=== PATIENT | female | born 1965 | race Caucasian/White ===

== ENCOUNTER 2017-08-24 18:19 | Emergency (ER) | payer MEDICAID ==
[~2017-08-24] VITALS: Ht 162.6 cm; Wt 59.0 kg
[2017-08-24] MEDS ORDERED: FAMOTIDINE 20MG/2ML VIAL IV STA (18:47)
[2017-08-24] MEDS ORDERED: ONDANSETRON HCL 4MG/2ML VIAL IV STA (18:47)
[2017-08-24] MEDS ORDERED: KETOROLAC 30MG/ML VIAL IV STA (18:47)
[2017-08-24] MEDS ORDERED: MORPHINE SULFATE 4 MG/ML CPJ (NOT FOR IM USE) IV STA (18:47)
[2017-08-24] MEDS ORDERED: SODIUM CHLORIDE 0.9% 1,000 ML IV ONE (18:47)
[2017-08-24 19:17] LABS: BASOPHILS % 0.5 % (0.0-2.0); HEMATOCRIT. 43.2 % (36.0-48.0); LYMPHOCYTES % 36.4 % (20.0-50.0); MEAN CORPUSCULAR HEMOGLOBIN 40.8 pg (28.0-32.0); MEAN CORPUSCULAR VOLUME 117.5 fL (81.0-99.0); MEAN PLATELET VOLUME 7.7 fl (7.4-10.4); NEUTROPHILS % 51.1 % (40.0-76.0); PLATELET 258 x1000/uL (130-400); RED BLOOD CELL COUNT 3.68 mill/uL (4.2-5.4); RED CELL DISTRIBUTION WIDTH 16.4 % (11.6-14.6)
[2017-08-24 19:22] LABS: CHLORIDE 105 mEq/L (98-107)
[2017-08-24 19:24] LABS: PROTHROMBIN TIME 10.1 sec (9.4-11.6)
[2017-08-24 19:30] LABS: CLARITY URINE CLEAR (CLEAR); COLOR URINE YELLOW (YELLOW); KETONES URINE NEGATIVE (NEGATIVE); LEUKOCYTE ESTERASE URINE NEGATIVE (NEGATIVE); NITRITE URINE NEGATIVE (NEGATIVE); OCCULT BLOOD URINE TRACE (NEGATIVE); PROTEIN URINE NEGATIVE (NEGATIVE); SPECIFIC GRAVITY URINE 1.008 (1.005-1.030); UROBILINOGEN URINE 0.2 E.U./dL (0.2-1.0)
[2017-08-24 19:31] LABS: PLATELET ESTIMATE NORMAL
[2017-08-24] MEDS ORDERED: MORPHINE SULFATE 4 MG/ML CPJ (NOT FOR IM USE) IV ONE (20:00)
[2017-08-24] MEDS ORDERED: FOLIC ACID 1 MG, THIAMINE HCL 100 MG, MVI, ADULT NO.1 10 ML in DEXTROSE 5% WATER 1,000 ML IV ONE ×4 (21:00)
[2017-08-24 22:02] VITALS: BP 113/91
[2017-08-25 10:04] LABS: *AMPHETAMINES SCREEN URINE NEGATIVE (NEGATIVE); *BARBITURATES SCREEN URINE NEGATIVE (NEGATIVE); *BENZODIAZEPINES SCREEN URINE PRESUMTIVE POSITIVE (NEGATIVE); *COCAINE SCREEN URINE NEGATIVE (NEGATIVE)
[2017-08-25 10:05] LABS: CANNABINOID URINE SCREEN PRESUMTIVE POSITIVE (NEGATIVE); METHADONE URINE SCREEN NEGATIVE (NEGATIVE); OPIATES URINE SCREEN NEGATIVE (NEGATIVE); PHENCYCLIDINE URINE SCREEN NEGATIVE (NEGATIVE)
== END 2017-08-24 23:20 | disposition home or self-care (01) ==
LOC: ER 18:19 → ENRESERV 23:29 → CANRESERV 23:29 → CANBEDREQ 23:48
DX: K29.20 Alcoholic gastritis without bleeding (principal); E86.0 Dehydration; F41.9 Anxiety disorder, unspecified; F17.290 Nicotine dependence, other tobacco product, uncomplicated; Z90.710 Acquired absence of both cervix and uterus
CPT/HCPCS: 36415; 71045; 74176; 80053; 80305; 81003; 83605; 83690; 84484; 85025; 85610; 93005; 96361; 96365; 96366; 96375; 96376; 99285; 99406; G0482; J1885; J2270; J2405; J3411; J3490; J7030; J7070

== ENCOUNTER 2021-09-04 01:43 | Inpatient (IN) | payer MEDICAID, MEDICARE ==
[~2021-09-04] VITALS: Ht 154.9 cm; Wt 51.7 kg
[2021-09-04] VITALS (55 sets, daily range): BP systolic 37–169; BP diastolic 20–156
[2021-09-04] MEDS ORDERED: DEXTROSE 50% WATER 50ML SYRINGE IV ONE (02:00)
[2021-09-04] MEDS ORDERED: VANCOMYCIN 1G PREMIX 200 ML IV ONE (02:00)
[2021-09-04] MEDS ORDERED: CEFTRIAXONE 1 G PREMIX 50 ML IV ONE (02:00)
[2021-09-04] MEDS ORDERED: SODIUM CHLORIDE 0.9% 1000ML BAG (SEPSIS BOLUS) IV ONE ×2 (02:00→03:15)
[2021-09-04] MEDS ORDERED: NOREPINEPHRINE 8MG/250ML PMX 250 ML IV ONE (02:15)
[2021-09-04 03:07] LABS: HCG SCREEN NEGATIVE
[2021-09-04] MEDS ORDERED: PIPERACILLIN/TAZ 3.375G PREMIX 50 ML IV ONE (03:15)
[2021-09-04 03:22] LABS: HEMATOCRIT. 33.3 % (36.0-48.0); HEMOGLOBIN. 10.6 g/dL (12.0-16.0); MEAN CORPUSCULAR HEMOGLOBIN 36.5 pg (28.0-32.0); MEAN CORPUSCULAR VOLUME 114.1 fL (81.0-99.0); MEAN PLATELET VOLUME 9.4 fl (7.4-10.4); PLATELET 104 x1000/uL (130-400); RED BLOOD CELL COUNT 2.92 mill/uL (4.2-5.4); RED CELL DISTRIBUTION WIDTH 16.1 % (11.6-14.6)
[2021-09-04 03:29] LABS: CLARITY URINE TURBID (CLEAR); COLOR URINE DARK YELLOW (YELLOW); KETONES URINE TRACE (NEGATIVE); LEUKOCYTE ESTERASE URINE 1+ (NEGATIVE); NITRITE URINE NEGATIVE (NEGATIVE); OCCULT BLOOD URINE 2+ (NEGATIVE); PROTEIN URINE 3+ (NEGATIVE); SPECIFIC GRAVITY URINE 1.021 (1.005-1.030)
[2021-09-04 03:38] LABS: CHLORIDE 97 mEq/L (98-107)
[2021-09-04 03:47] LABS: CREATINE KINASE 332 IU/L (26-192); ETHANOL BLOOD < 10 mg/dL; T4 FREE 1.99 ng/dL (0.76-1.46)
[2021-09-04 03:55] LABS: PLATELET ESTIMATE DECREASED
[2021-09-04 03:58] LABS: *AMPHETAMINES SCREEN URINE NEGATIVE (NEGATIVE); *BARBITURATES SCREEN URINE NEGATIVE (NEGATIVE); *BENZODIAZEPINES SCREEN URINE PRESUMTIVE POSITIVE (NEGATIVE); *COCAINE SCREEN URINE NEGATIVE (NEGATIVE); CANNABINOID URINE SCREEN PRESUMTIVE POSITIVE (NEGATIVE); METHADONE URINE SCREEN NEGATIVE (NEGATIVE); OPIATES URINE SCREEN NEGATIVE (NEGATIVE); PHENCYCLIDINE URINE SCREEN NEGATIVE (NEGATIVE)
[2021-09-04] MEDS ORDERED: ONDANSETRON HCL 4MG/2ML INJ IV ONE (04:30)
[2021-09-04 04:44] LABS: BG BASE EXCESS -17.5 mmol/L (-2.0-2.0); BG CARBOXYHEMOGLOBIN 0.3 % (0.5-1.5); BG DEOXYHEMOGLOBIN 2.3 % (0.0-5.0); BG FRACTION INSPIRED OXYGEN 21; BG HCO3 ACT 7.2 mmol/L (22.0-26.0); BG METHEMOGLOBIN 0.3 % (0.0-1.5); BG OXYGEN SATURATION 97.7 % (92.0-98.5); BG OXYHEMOGLOBIN 97.1 % (94.0-97.0); BG PCO2 16.3 mmHg (35.0-45.0); BG PH 7.264 (7.350-7.450); BG SAMPLE SITE RIGHT BRACHIAL; BG TOTAL HEMOGLOBIN 11.4 g/dL (12.0-18.0); BG VENT MODE ROOM AIR
[2021-09-04] MEDS ORDERED: SODIUM BICARBONATE 150 MEQ in DEXTROSE 5% WATER 1,000 ML IV NR (05:00)
[2021-09-04] MEDS ORDERED: ACETYLCYSTEINE IV NR ×3 (07:00→14:00)
[2021-09-04] MEDS ORDERED: WATER IV NR ×3 (07:00→14:00)
[2021-09-04] MEDS ORDERED: DEXT 5% IV NR ×2 (07:00→09:00)
[2021-09-04] MEDS ORDERED: NOREPINEPHRINE 8MG/250ML PMX 250ML IV PRN (07:30)
[2021-09-04] MEDS ORDERED: NOREPINEPHRINE 8 MG in DEXT 5% WATER 242 ML IV PRN (07:30)
[2021-09-04] MEDS: MULTIVITAMINS,THER W-MINERALS TABLET PO SCH ×2 (09:00→11:00)
[2021-09-04] MEDS ORDERED: ONDANSETRON HCL 4MG/2ML INJ IV PRN (10:45)
[2021-09-04] MEDS ORDERED: IPRATROPIUM/ALBUTEROL 0.5-3(2.5)MG/3ML NEB HHN PRN (10:45)
[2021-09-04] MEDS ORDERED: CLONIDINE 0.1MG TABLET PO PRN (10:45)
[2021-09-04] MEDS ORDERED: FOLIC ACID 1MG TABLET PO SCH (11:00)
[2021-09-04] MEDS ORDERED: THIAMINE HCL 100MG TABLET PO SCH (11:00)
[2021-09-04 11:24] LABS: BG BASE EXCESS -12.4 mmol/L (-2.0-2.0); BG CARBOXYHEMOGLOBIN 0.3 % (0.5-1.5); BG DEOXYHEMOGLOBIN 2.6 % (0.0-5.0); BG FRACTION INSPIRED OXYGEN 21; BG HCO3 ACT 9.5 mmol/L (22.0-26.0); BG METHEMOGLOBIN 0.2 % (0.0-1.5); BG OXYGEN SATURATION 97.4 % (92.0-98.5); BG OXYHEMOGLOBIN 96.9 % (94.0-97.0); BG PCO2 14.4 mmHg (35.0-45.0); BG PH 7.436 (7.350-7.450); BG SAMPLE SITE RIGHT RADIAL; BG TOTAL HEMOGLOBIN 10.3 g/dL (12.0-18.0); BG VENT MODE ROOM AIR
[2021-09-04] MEDS ORDERED: LACTULOSE 300 ML in WATER FOR IRRIGATION,STERILE 700 ML IR ONE (12:00)
[2021-09-04] MEDS: CEFTRIAXONE 1,000 MG in DEXTROSE 5% WATER 50 ML IV SCH ×2 (12:00→13:26)
[2021-09-04] MEDS ORDERED: THIAMINE HCL 100 MG in SODIUM CHLORIDE 0.9% 49 ML IV NR (13:00)
[2021-09-04] MEDS ORDERED: MVI, ADULT NO.1 10 ML, FOLIC ACID 1 MG, THIAMINE HCL 100 MG in SODIUM CHLORIDE 0.9% 1,0... IV ONE ×4 (14:00)
[2021-09-04] MEDS ORDERED: DEXTROSE 5% IV NR (14:00)
[2021-09-04] MEDS: LACTULOSE 20G/30ML UDC PO SCH ×2 (14:00→21:31)
[2021-09-04 15:37] LABS: HEPATITIS B SURFACE ANTIGEN NEGATIVE
[2021-09-04 17:30] LABS: PHOSPHORUS 3.3 mg/dL (2.5-4.9)
[2021-09-04 17:57] LABS: FERRITIN > 8250 ng/mL (10-291)
[2021-09-04 19:07] LABS: PROTHROMBIN TIME > 100.0 sec (9.6-11.0)
[2021-09-04] MEDS: NOREPINEPHRINE 8 MG in DEXT 5% WATER 242 ML IV PRN ×2 (19:25→23:25)
[2021-09-04 20:16] LABS: FOLIC ACID (FOLATE) SERUM > 20.00 ng/mL (>5.38); VITAMIN B12 SERUM > 2000.0 pg/mL (211-911)
[2021-09-04] MEDS ORDERED: FAMOTIDINE 20MG TABLET PO SCH (21:00)
[2021-09-04 21:43] LABS: D-DIMER 31.52 mg/L FEU (<0.50)
[2021-09-04 21:45] LABS: PROTHROMBIN TIME > 100.0 sec (9.6-11.0)
[2021-09-04] MEDS ORDERED: NOREPINEPHRINE 32 MG in DEXT 5% WATER 218 ML IV PRN (23:53)
[2021-09-05] VITALS (33 sets, daily range): BP systolic 37–140; BP diastolic 16–109
[2021-09-05 02:23] LABS: BG BASE EXCESS -12.7 mmol/L (-2.0-2.0); BG CARBOXYHEMOGLOBIN 0.7 % (0.5-1.5); BG DEOXYHEMOGLOBIN 69.3 % (0.0-5.0); BG FRACTION INSPIRED OXYGEN 21; BG HCO3 ACT 11.7 mmol/L (22.0-26.0); BG METHEMOGLOBIN 0.6 % (0.0-1.5); BG OXYGEN SATURATION 29.8 % (92.0-98.5); BG OXYHEMOGLOBIN 29.4 % (94.0-97.0); BG PCO2 22.2 mmHg (35.0-45.0); BG PH 7.339 (7.350-7.450); BG PO2 < 30.3 mmHg (75.0-100.0); BG SAMPLE SITE RIGHT RADIAL; BG TOTAL HEMOGLOBIN 8.1 g/dL (12.0-18.0); BG VENT MODE ROOM AIR
[2021-09-05 03:30] LABS: PROTHROMBIN TIME > 100.0 sec (9.6-11.0)
[2021-09-05 03:33] LABS: INR > 10.0
[2021-09-05 05:03] LABS: BG BASE EXCESS -15.3 mmol/L (-2.0-2.0); BG CARBOXYHEMOGLOBIN 0.3 % (0.5-1.5); BG DEOXYHEMOGLOBIN 0.8 % (0.0-5.0); BG FRACTION INSPIRED OXYGEN 60; BG HCO3 ACT 9.5 mmol/L (22.0-26.0); BG METHEMOGLOBIN 0.6 % (0.0-1.5); BG OXYGEN SATURATION 99.2 % (92.0-98.5); BG OXYHEMOGLOBIN 98.3 % (94.0-97.0); BG PCO2 19.6 mmHg (35.0-45.0); BG PH 7.303 (7.350-7.450); BG PO2 418.1 mmHg (75.0-100.0); BG SAMPLE SITE RIGHT FEMORAL; BG TOTAL HEMOGLOBIN 7.4 g/dL (12.0-18.0); BG VENT MODE MASK - SIMPLE
[2021-09-05 06:29] LABS: PROTHROMBIN TIME 62.2 sec (9.6-11.0)
[2021-09-05] MEDS ORDERED: PHENYLEPHRINE 100 MG in DEXT 5% WATER 240 ML IV PRN (06:30)
[2021-09-05 06:33] LABS: INR 6.7
[2021-09-05 06:47] LABS: HEMATOCRIT. 24.6 % (36.0-48.0); HEMOGLOBIN. 8.1 g/dL (12.0-16.0); MEAN CORPUSCULAR HEMOGLOBIN 36.6 pg (28.0-32.0); MEAN PLATELET VOLUME 9.3 fl (7.4-10.4); PLATELET 92 x1000/uL (130-400); RED CELL DISTRIBUTION WIDTH 15.6 % (11.6-14.6)
[2021-09-05 07:12] LABS: CREATINE KINASE MB FRACTION 86.4 ng/mL (0.5-3.6)
[2021-09-05] MEDS ORDERED: PROPOFOL 10MG/ML 100ML 100 ML IV PRN (07:15)
[2021-09-05 07:41] LABS: NUCLEATED RED BLOOD CELLS 2 /100 WBC
[2021-09-05 07:42] LABS: PLATELET ESTIMATE DECREASED
[2021-09-05 07:53] LABS: INR > 10.0
[2021-09-05 07:55] LABS: INR > 10.0
[2021-09-05] MEDS ORDERED: DEXTROSE 50% WATER 50ML SYRINGE IV PRN (08:00)
[2021-09-05] MEDS ORDERED: VECURONIUM BROMIDE 10 MG/VIAL IV ONE (08:45)
[2021-09-05] MEDS ORDERED: SODIUM CHLORIDE 0.9% 1000ML BAG (SEPSIS BOLUS) IV NR (08:45)
[2021-09-05] MEDS ORDERED: SODIUM CHLORIDE 0.9% 10ML VIAL ONE (08:45)
[2021-09-05] MEDS ORDERED: VASOPRESSIN 20 UNIT in SODIUM CHLORIDE 0.9% 99 ML IV PRN (08:45)
[2021-09-05] MEDS ORDERED: OCTREOTIDE 1,000 MCG in SODIUM CHLORIDE 0.9% 98 ML IV SCH (08:45)
[2021-09-05] MEDS ORDERED: PHYTONADIONE 10MG/ML AMP SUBCUT NR (08:45)
[2021-09-05] MEDS ORDERED: THIAMINE HCL 100MG TABLET PO SCH (09:00)
[2021-09-05] MEDS ORDERED: OCTREOTIDE ACETATE 50 MCG/ML 1ML IV NR (09:00)
[2021-09-05] MEDS ORDERED: PANTOPRAZOLE SODIUM 40 MG/VIAL IV SCH (09:00)
[2021-09-05] MEDS ORDERED: DEXTROSE 50% WATER 50ML SYRINGE IV ONE (09:28)
[2021-09-05] MEDS ORDERED: SODIUM BICARBONATE 8.4% 1 MEQ/ML 50ML SYR IV ONE (09:28)
[2021-09-05] MEDS ORDERED: EPINEPHRINE 0.1MG/ML (1:10,000) 10ML SYR ONE (09:28)
[2021-09-05] MEDS ORDERED: CALCIUM CHLORIDE 1GM/10ML SYR IV ONE (09:28)
== END 2021-09-05 11:25 | DRG 720 ==
LOC: ER 01:43 → MICUNO 06:42 → EDBEDREQSVC 07:44 → EDBEDREQ 07:44 → ENRESERV 07:49 → EDBEDREQTM 08:03 → EDBEDREQ 08:03
PROVIDERS: ADMIT Internal Medicine; ATTEND Internal Medicine
PROC: 02HV33Z Insertion of Infusion Device into Superior Vena Cava, Percutaneous Approach (ICD-10-PCS; principal; 2021-09-05)
PROC: 5A12012 Performance of Cardiac Output, Single, Manual (ICD-10-PCS; 2021-09-05)
PROC: 5A1935Z Respiratory Ventilation, Less than 24 Consecutive Hours (ICD-10-PCS; 2021-09-05)
PROC: B548ZZA Ultrasonography of Superior Vena Cava, Guidance (ICD-10-PCS; 2021-09-05)
PROC: 0BH17EZ Insertion of Endotracheal Airway into Trachea, Via Natural or Artificial Opening (ICD-10-PCS; 2021-09-05)
PROC: 30233M1 Transfusion of Nonautologous Plasma Cryoprecipitate into Peripheral Vein, Percutaneous Approach (ICD-10-PCS; 2021-09-05)
DX: A41.9 Sepsis, unspecified organism (principal); K72.00 Acute and subacute hepatic failure without coma; I46.9 Cardiac arrest, cause unspecified; R65.21 Severe sepsis with septic shock; E72.20 Disorder of urea cycle metabolism, unspecified; G92.8 Other toxic encephalopathy; E87.2 Acidosis; D68.9 Coagulation defect, unspecified; D69.6 Thrombocytopenia, unspecified; N17.9 Acute kidney failure, unspecified; K76.0 Fatty (change of) liver, not elsewhere classified; N39.0 Urinary tract infection, site not specified; D53.9 Nutritional anemia, unspecified; E05.90 Thyrotoxicosis, unspecified without thyrotoxic crisis or storm; E16.2 Hypoglycemia, unspecified; F12.90 Cannabis use, unspecified, uncomplicated; F13.90 Sedative, hypnotic, or anxiolytic use, unspecified, uncomplicated; F17.210 Nicotine dependence, cigarettes, uncomplicated; I50.9 Heart failure, unspecified; F32.A Depression, unspecified; F41.9 Anxiety disorder, unspecified; K92.2 Gastrointestinal hemorrhage, unspecified; J44.9 Chronic obstructive pulmonary disease, unspecified; K74.60 Unspecified cirrhosis of liver; Z78.1 Physical restraint status; Z85.42 Personal history of malignant neoplasm of other parts of uterus; Z90.710 Acquired absence of both cervix and uterus; Z92.21 Personal history of antineoplastic chemotherapy; Z92.3 Personal history of irradiation; F10.10 Alcohol abuse, uncomplicated; T39.1X5A Adverse effect of 4-Aminophenol derivatives, initial encounter
CPT/HCPCS: 31500; 36415; 36573; 36600; 71045; 73030; 73080; 74177; 76700; 80048; 80053; 80076; 80305; 80307; 80320; 80329; 81003; 82140; 82150; 82248; 82375; 82550; 82553; 82607; 82728; 82746; 82805; 82962; 83540; 83550; 83605; 83735; 83880; 84100; 84145; 84439; 84443; 84481; 84484; 84703; 85025; 85044; 85379; 86703; 86705; 86709; 86803; 86850; 86900; 86920; 86927; 87077; 87186; 87340; 92950; 93005; 93306; 93971; 99285; C1725; J0132; J0696; J2354; J2370; J2405; J2543; J3370; J3411; J3490; J7030; J7050; J7060; J7070; P9012; G0480